=== PATIENT | female | born 1990 | race Caucasian/White ===

== ENCOUNTER 2020-11-30 11:20 | Day surgery (SDC) | payer OTHER ==
[2020-11-30 13:12] VITALS: BMI 31.0
[2020-11-30] MEDS ORDERED: hydrALAZINE 20 MG/ML VIAL SLOW IVP PRN (13:25)
== END 2020-11-30 13:55 | disposition home or self-care (01) ==
LOC: CSHLD/OP 11:20
PROVIDERS: ATTEND Family Medicine
DX: O99.891 Other specified diseases and conditions complicating pregnancy (principal); M25.529 Pain in unspecified elbow; M25.569 Pain in unspecified knee; M54.2 Cervicalgia; Z3A.34 34 weeks gestation of pregnancy; Z79.899 Other long term (current) drug therapy; W19.XXXA Unspecified fall, initial encounter
CPT/HCPCS: 99282